=== PATIENT | female | born 1995 | race Caucasian/White ===

== ENCOUNTER 2018-01-10 08:01 | Outpatient (CLI) | payer OTHER ==
--- NOTE | 2018-01-10 09:23 | ULT ---
RIGHT UPPER QUADRANT ULTRASOUND: History: Elevated LFTs. FINDINGS: Real-time imaging of the right upper quadrant demonstrates a normal appearing gallbladder. Technologi st reports a negative ultrasound Burnham's sign. The common duct is 2-3 mm. Liver measures 14.8 cm in length. Right kidney is normal in size and not obstructed. Pancreas is fairly well visualized and normal. IMPRESSION: Unremarkable right upper quadrant ultrasound. POS: [facility]
== END 2018-01-10 08:02 | disposition home or self-care (01) ==
LOC: SCSULT 08:01
PROVIDERS: ATTEND Internal Medicine
DX: R74.0 Nonspecific elevation of levels of transaminase and lactic acid dehydrogenase [LDH] (principal)
CPT/HCPCS: 76705